=== PATIENT | female | born 1985 | race Caucasian/White ===

== ENCOUNTER 2018-12-01 19:22 | Emergency (ER) | payer SELFPAY ==
[2018-12-01] MEDS: ACETAMINOPHEN 500 MG TAB PO (22:32)
== END 2018-12-02 00:17 | disposition home or self-care (01) ==
LOC: E/R 12-02 00:17
DX: S09.90XA Unspecified injury of head, initial encounter (principal); Y04.8XXA Assault by other bodily force, initial encounter
CPT/HCPCS: 99283